=== PATIENT | female | born 1965 | race Caucasian/White ===

== ENCOUNTER → 2020-04-30 | Outpatient (CLI) | payer BC, OTHER ==
[~2020-04-30] MED LIST: POLYSPORIN OI28.3 G1 TP
[2020-04-30 19:05] LABS: HEMOGLOBIN 13.5 gm/dl (12.3-15.3); RED BLOOD COUNT 4.5 M/UL (4.00-5.10); WHITE BLOOD COUNT 15.2 K/UL (4.5-11.0)
== END ==
LOC: LAB 17:49
PROVIDERS: Nurse Practitioner Family
DX: K11.20 Sialoadenitis, unspecified (principal)
CPT/HCPCS: 85025; 85652; 86735

== ENCOUNTER 2020-05-12 15:54 | Emergency (ER) | payer BC, OTHER ==
[2020-05-12] MEDS ORDERED: POLYSPORIN OI28.3 G1 TP (16:27)
== END 2020-05-12 16:56 | disposition home or self-care (01) ==
LOC: ER1 15:54
DX: T20.26XA Burn of second degree of forehead and cheek, initial encounter (principal); T23.122A Burn of first degree of single left finger (nail) except thumb, initial encounter; T31.0 Burns involving less than 10% of body surface; I10 Essential (primary) hypertension; X12.XXXA Contact with other hot fluids, initial encounter; Y92.69 Other specified industrial and construction area as the place of occurrence of the external cause; Y99.0 Civilian activity done for income or pay
CPT/HCPCS: 99283

== ENCOUNTER → 2021-11-25 | Outpatient (CLI) | payer BC | LOC: KOH-I 09:42 | DX: R31.9 Hematuria, unspecified (principal); M54.9 Dorsalgia, unspecified; N20.0 Calculus of kidney | CPT/HCPCS: 74176 ==